=== PATIENT | female | born 1975 | race Two or more races ===

== ENCOUNTER 2022-05-04 08:17 | Day surgery (SDC) | payer OTHER ==
[~2022-05-04] VITALS: Ht 152.4 cm; Wt 64.4 kg
[2022-05-04] MEDS ORDERED: ceFAZolin 1GM/50ML 100 ML IV ONE (08:41)
[2022-05-04] MEDS ORDERED: ROPIVACAINE 0.5% (5MG/ML) 20ML AMPULE IJ ONE (09:00)
[2022-05-04] MEDS ORDERED: KETAMINE HCL 10 ML ONE (09:04)
[2022-05-04] MEDS ORDERED: ONDANSETRON HCL 4 MG/2 ML VIAL ONE (09:04)
[2022-05-04] MEDS ORDERED: MIDAZOLAM HCL 2MG/2ML 2ml VIAL (1mg/ml) ONE (09:04)
[2022-05-04] MEDS ORDERED: LIDOCAINE 2% (LOCAL ANESTH.) PF 5ml SDV ONE (09:04)
[2022-05-04] MEDS ORDERED: HYDROmorphone HCL 2 MG/ML VL/or syr ONE (09:04)
[2022-05-04] MEDS ORDERED: DexAMETHasone SOD PHOS 10MG/1ML VIAL INJ ONE (09:04)
[2022-05-04] MEDS ORDERED: ePHEDrine SULFATE 50 MG/ML AMP ONE (09:04)
[2022-05-04] MEDS ORDERED: fentaNYL CITRATE 5 ML ONE (09:04)
[2022-05-04] MEDS ORDERED: GLYCOPYRROLATE 0.2 MG/ML 1ML VIAL ONE (09:04)
[2022-05-04] MEDS ORDERED: PROPOFOL 10 MG/ML 20 ML IV ONE (09:04)
[2022-05-04] MEDS ORDERED: KETOROLAC TROMETH 30 MG/ML 1ML VIAL ONE (09:04)
[2022-05-04] MEDS ORDERED: ROCURONIUM 10MG/ML 10ML VIAL IV ONE (09:09)
[2022-05-04] MEDS ORDERED: SUCCINYLCHOLINE CHLORIDE 20 MG/ML 10ML VIAL IV ONE (09:36)
[2022-05-04] MEDS ORDERED: EPINEPHrine HCL 1 MG/1 ML AMP ONE ×2 (10:47→10:49)
[2022-05-04] MEDS ORDERED: BUPIVACAINE 0.25% INJ 50ML VIAL IJ ONE (11:00)
[2022-05-04] MEDS ORDERED: BUPIVACAINE 0.25% INJ 50ML VIAL ONE (12:03)
[2022-05-04] MEDS ORDERED: HYDR1TAB97 PO (12:04)
[2022-05-04] MEDS ORDERED: ONDANSETRON HCL 4 MG/2 ML VIAL IV PRN (12:15)
[2022-05-04] MEDS ORDERED: HYDROmorphone HCL 2 MG/ML VL/or syr IV PRN (12:15)
[2022-05-04 13:00] VITALS: BP 127/69
== END 2022-05-04 13:20 | disposition home or self-care (01) ==
LOC: SUR 08:17
PROVIDERS: ATTEND Orthopaedic Surgery Sports Medicine
DX: M75.121 Complete rotator cuff tear or rupture of right shoulder, not specified as traumatic (principal); M94.211 Chondromalacia, right shoulder; M65.9 Synovitis and tenosynovitis, unspecified; I10 Essential (primary) hypertension; Z20.822 Contact with and (suspected) exposure to COVID-19
CPT/HCPCS: 29826; 29827; J0171; J0330; J0690; J1100; J1170; J1885; J2001; J2250; J2405; J2704; J2795; J3010; J3490; U0003; A4565